=== PATIENT | female | born 1965 | race Caucasian/White ===

== ENCOUNTER 2019-03-14 11:22 | Emergency (ER) | payer BC ==
--- NOTE | 2019-03-14 11:37 | Emergency Department Record ---
History of Present Illness - General Chief Complaint: Hypertension Stated Complaint: BLOOD PRESSURE HIGH Time Seen by Provider: 03/14/19 11:31 Source: Patient Mode of Arrival: Ambulatory Limitations: No limitations - History of Present Illness Initial Comments: 53 yo female presents with a concern about her blood pressure. She has had hypertension since about age 40. Since Thursday her BP has been elevated from her baseline. She is currently asymptomatic. She states last week she did have a few headaches and felt like she had trouble focusing her vision on an occasion. None of the at is going on at this time. No chest pain, shortness of breath, edema, back or abdominal pain. She is in between doctors and will run of her current prescriptions soon. No diabetes. No CAD. Non smoker. Onset/Timin -: Days(s) Timing: Gradual onset History of Same: No History of Trauma: No Improves With: Nothing Worsens With: Nothing Associated Symptoms: Denies other symptoms - [place] Coma Scale Eye Response: (4) Open spontaneously Motor Response: (6) Obeys commands Verbal Response: (5) Oriented [place] Total: 15 - Related Data Home Medications Medication Instructions Recorded Confirmed Last Taken Albuterol Sulfate [Albuterol 8.5 gm IH ASDIR 03/14/19 03/14/19 Unknown Sulfate Hfa] Losartan Potassium 100 mg PO QAM 03/14/19 03/14/19 03/14/19 Previous Rx's Medication Instructions Recorded Amlodipine Besylate 5 mg PO DAILY #30 tab 03/14/19 Losartan Potassium 100 mg PO DAILY #30 tablet 03/14/19 Metformin HCl 500 mg PO QAM #30 tablet 03/14/19 Allergies Allergy/AdvReac Type Severity Reaction Status Date / Time No Known Drug Allergies Allergy Verified 03/14/19 11:34 Travel Screening - Travel/Exposure Within Last 30 Days Have you traveled within the last 30 days?: No Review of Systems Constitutional: Denies: Chills, Fever, Malaise, Weakness Eyes: Reports: As per HPI, Vision change. Denies: Eye discharge, Eye pain, Photophobia ENT: Denies: Congestion, Throat pain Respiratory: Denies: Cough, Dyspnea, Hemoptysis, Stridor, Wheezes Cardiovascular: Denies: Chest pain, Palpitations, Syncope Endocrine: Denies: Fatigue, Polydipsia, Polyuria Gastrointestinal: Denies: Abdominal pain, Diarrhea, Nausea, Vomiting Genitourinary: Denies: Dysuria, Urgency Musculoskeletal: Denies: Arthralgia, Back pain, Joint swelling, Myalgia Skin: Denies: Bruising, Change in color, Rash Neurological: Reports: Headache. Denies: Abnormal gait, Confusion, Numbness, Tingling, Tremors, Vertigo, Weakness Psychiatric: Denies: Anxiety Hematological/Lymphatic: Denies: Easy bleeding, Easy bruising, Swollen glands Past Medical History - SOCIAL HISTORY Smoking Status: Never smoker Alcohol Use: None Drug Use: None - RESPIRATORY Hx Respiratory Disorders: Yes Hx Asthma: Yes - CARDIOVASCULAR Hx Cardio Disorders: Yes Hx Hypertension: Yes - NEURO Hx Neuro Disorders: No - GI Hx GI Disorders: No - Hx Genitourinary Disorders: No - ENDOCRINE Hx Endocrine Disorders: No - MUSCULOSKELETAL Hx Musculoskeletal Disorders: No - PSYCH Hx Psych Problems: No - HEMATOLOGY/ONCOLOGY Hx Hematology/Oncology Disorders: No Family Medical History Any Significant Family History?: No Physical Exam - General General Appearance: Alert, Oriented x3, Cooperative, No acute distress Limitations: No limitations - Head Head exam: Atraumatic, Normal inspection - Eye Eye exam: Normal appearance, PERRL. negative: Conjunctival injection, Scleral icterus - ENT ENT exam: Normal exam, Mucous membranes moist Ear exam: Normal external inspection Nasal Exam: Normal inspection Mouth exam: Normal external inspection - Neck Neck exam: Normal inspection - Respiratory Respiratory exam: Normal lung sounds bilaterally. negative: Respiratory distress - Cardiovascular Cardiovascular Exam: Regular rate, Normal rhythm, Normal heart sounds - GI/Abdominal GI/Abdominal exam: Soft. negative: Tenderness - Rectal Rectal exam: Deferred - exam: Deferred - Extremities Extremities exam: Normal inspection. negative: Pedal edema, Tenderness - Back Back exam: Reports: CVA tenderness (R), CVA tenderness (L) - Neurological Neurological exam: Alert, CN II-XII intact, Normal gait, Oriented X3. negative: Abnormal gait, Altered, Motor sensory deficit - Psychiatric Psychiatric exam: Normal affect, Normal mood - Skin Skin exam: Dry, Intact, Normal color, Warm Course Vital Signs 03/14/19 11:30 Temperature 98.1 F Pulse Rate 71 Respiratory 20 Rate Blood Pressure 166/67 Pulse Ox 97 - Reevaluation(s) Reevaluation #1: 03/14/19 12:24 The CBC is normal 03/14/19 12:49 The BMP was reviewed Normal renal function Glucose is 300 This is essentially a fasting level since she has not eating since last PM A1C was added I had a Family strategic manager see the patient to facilitate outpatient follow up 03/14/19 13:10 An appointment was set up with Dr Sanchez next Thursday A1C is 11 Dr Sanchez and I discussed the case. The patient will start Metformin 500mg QD with food and Amlodipine 5mg QD She will continue her Losartan Medical Decision Making - Lab Data Result diagrams: 03/14/19 11:50 03/14/19 11:50 Disposition Disposition: Discharge Clinical Impression: Hyperglycemia Hypertension Qualifiers: Hypertension type: unspecified Qualified Code(s): I10 - Essential (primary) hypertension Disposition: Home, Self-Care Condition: (1) Good Instructions: Hypertension (ED), Hyperglycemia, Non-Diabetic (ED) Additional Instructions: Review this ER visit and the tests performed with your new family doctor next Thursday Return to the ER for a recheck if worse, any new concerns or questions Take the prescriptions provided as directed Prescriptions: Amlodipine Besylate 5 mg PO DAILY #30 tab Losartan Potassium 100 mg PO DAILY #30 tablet Metformin HCl 500 mg PO QAM #30 tablet Forms: Patient Portal Access Time of Disposition: 13:12 Quality - Quality Measures Quality Measures: N/A - Blood Pressure Screening Does Patient Have Any of the Following: Active Dx of HTN Blood Pressure Classification: Pre-Hypertensive BP Reading Systolic Measurement: 136 Diastolic Measurement: 89 Screening for High Blood Pressure: Patient Exclusion, Hx of HTN [G9744]
[2019-03-14 12:19] LABS: ABSOLUTE NEUTROPHIL COUNT 4.18; BASO % 1.1 % (0-6); EOS % 1.6 % (0-6); GRAN % 59.4 % (47-80); HEMATOCRIT 44.3 % (35.0-47.0); HEMOGLOBIN 14.8 gm/dl (11.6-16.0); LYMPH % 31.2 % (16-45); MEAN CELL VOLUME 85.9 fl (81-97); MEAN CORPUSCULAR HEMOGLOBIN 28.7 pg (27-33); MEAN CORPUSCULAR HGB CONC 33.4 g/dl (32-36); MEAN PLATELET VOLUME 9.4 fl (7.4-10.4); MONO % 6.7 % (0-9); PLATELET COUNT 357 K/uL (130-400); RED BLOOD COUNT 5.16 M/uL (3.80-5.40); RED CELL DISTRIBUTION WIDTH 13.5 % (11.5-14.5); URINE APPEARANCE CLEAR; URINE BILIRUBIN NEGATIVE (NEGATIVE); URINE BLOOD TRACE-L (NEGATIVE); URINE COLOR YELLOW; URINE KETONE TRACE (NEGATIVE); URINE LEUKOCYTE ESTERASE NEGATIVE (NEGATIVE); URINE NITRITE NEGATIVE (NEGATIVE); URINE PROTEIN NEGATIVE (NEGATIVE); URINE UROBILINOGEN 0.2 E.U./dL (0.20 - 1.00)
[2019-03-14 12:28] LABS: BLOOD UREA NITROGEN 9 mg/dL (6-20); CREATININE 0.6 mg/dL (0.5-0.9); EST GLOMERULAR FILTRATION RATE > 60 mL/min
[2019-03-14 12:29] LABS: TOTAL PROTEIN 8.1 g/dL (6.6-8.7)
[2019-03-14 12:31] LABS: GLUCOSE,RANDOM 300 mg/dL (74-109); URINE EPITHELIAL CELLS 0 - 2 (FEW); URINE RBC 0 - 2 (NONE SEEN); URINE WBC NONE SEEN (0-2/hpf)
[2019-03-14 12:33] LABS: ALT/SGPT 48 U/L (<33)
[2019-03-14 12:34] LABS: ALB/GLOB RATIO 1.3 (1.1-1.8); ALBUMIN 4.5 g/dL (4.0-5.0); ALKALINE PHOSPHATASE 116 U/L (35-104); AST/SGOT 48 U/L (10.0-35.0)
== END 2019-03-14 13:35 | disposition home or self-care (01) ==
LOC: ER 11:22
DX: R73.9 Hyperglycemia, unspecified (principal); R51 Headache; I10 Essential (primary) hypertension
CPT/HCPCS: 80053; 81001; 83036; 84443; 85025; 99284

== ENCOUNTER 2019-03-31 13:00 | Emergency (ER) | payer BC ==
--- NOTE | 2019-03-31 13:47 | Emergency Department Record ---
History of Present Illness - General Chief Complaint: Cough Stated Complaint: COUGH Time Seen by Provider: 03/31/19 13:31 Source: Patient Mode of Arrival: Ambulatory Limitations: No limitations - History of Present Illness Initial Comments: The patient is here due to a 2 week hx of cough and congestion. She denies any sputum production, fever, chills, CP, SOB or [place]. She states her Immun. are UTD including her Pertussis. The patient does have a hx of HTN and did not take her medicines today. She did just take them in the room now. MD Complaint: Cough, Nasal congestion, Rhinorrhea Onset/Timin -: Week(s) Severity: Moderate Severity scale (1-10): 1 - Related Data Previous Rx's Medication Instructions Recorded Azithromycin [Zithromax] 250 mg PO DAILY #4 tab 03/31/19 Allergies Allergy/AdvReac Type Severity Reaction Status Date / Time No Known Drug Allergies Allergy Verified 03/31/19 13:31 Travel Screening - Travel/Exposure Within Last 30 Days Have you traveled within the last 30 days?: No - Travel/Exposure Within Last Year Have you traveled outside the [place] in the last year?: No - Additonal Travel Details Have you been exposed to anyone with a communicable illness?: No - Travel Symptoms Symptom Screening: None Review of Systems Constitutional: Denies: Chills, Fever Eyes: Denies: Eye discharge ENT: Denies: Congestion Respiratory: Denies: Cough, Dyspnea Past Medical History - SOCIAL HISTORY Smoking Status: Never smoker Alcohol Use: None Drug Use: None - RESPIRATORY Hx Respiratory Disorders: Yes Hx Asthma: Yes - CARDIOVASCULAR Hx Cardio Disorders: Yes Hx Hypertension: Yes (working on new medications) - NEURO Hx Neuro Disorders: No - GI Hx GI Disorders: No - Hx Genitourinary Disorders: No - ENDOCRINE Hx Endocrine Disorders: Yes Hx Diabetes: Yes (NIDDM) - MUSCULOSKELETAL Hx Musculoskeletal Disorders: No - PSYCH Hx Psych Problems: No - HEMATOLOGY/ONCOLOGY Hx Hematology/Oncology Disorders: No Family Medical History Any Significant Family History?: Yes Physical Exam - General General Appearance: Alert, Oriented x3, Cooperative, No acute distress - Head Head exam: Atraumatic, Normocephalic - Eye Eye exam: Normal appearance, PERRL - ENT Throat exam: Normal inspection. negative: Tonsillar erythema, Tonsillar exudate - Neck Neck exam: Normal inspection, Full ROM. negative: Tenderness - Respiratory Respiratory exam: Normal lung sounds bilaterally. negative: Respiratory distress - Cardiovascular Cardiovascular Exam: Regular rate, Normal rhythm, Normal heart sounds - GI/Abdominal GI/Abdominal exam: Soft, Normal bowel sounds. negative: Tenderness - Extremities Extremities exam: Normal inspection, Full ROM, Normal capillary refill. negative: Tenderness - Neurological Neurological exam: Alert. negative: Motor sensory deficit Course Vital Signs 03/31/19 13:26 Temperature 98.3 F Pulse Rate 102 H Respiratory 20 Rate Blood Pressure 203/155 Pulse Ox 98 - Reevaluation(s) Reevaluation #1: The patient is doing very well at this time. I do doubt her first BP was accurate and she had no symptoms of HTN at that time. The recheck BP is very normal so we will encourage her to continue to take her medicines. We will start her on a Zpak and have her see her PCP next week if not better. 03/31/19 14:27 Disposition Disposition: Discharge Clinical Impression: Bronchitis Disposition: Home, Self-Care Condition: (2) Stable Instructions: Cold Symptoms (ED) Additional Instructions: Please continue the ZPak as directed and please see your doctor for recheck next week if not better. Return to the ER for any worsening symptoms. Prescriptions: Azithromycin [Zithromax] 250 mg PO DAILY #4 tab Forms: Patient Portal Access Time of Disposition: 14:29 Quality - Quality Measures Quality Measures: N/A - Blood Pressure Screening View Details: Yes Does Patient Have Any of the Following: Active Dx of HTN Blood Pressure Classification: Hypertensive Reading Systolic Measurement: 203 Diastolic Measurement: 155 Screening for High Blood Pressure: Patient Exclusion, Hx of HTN [G9744]
[2019-03-31] MEDS ORDERED: AZITHROMYCIN 500 MG TABLET PO ONE (14:29)
== END 2019-03-31 14:39 | disposition home or self-care (01) ==
LOC: ER 13:00
DX: J20.9 Acute bronchitis, unspecified (principal); I10 Essential (primary) hypertension
CPT/HCPCS: 99283